=== PATIENT | female | born 1950 | race Native Hawaiian/Other Pacific Islander ===

== ENCOUNTER 2017-06-25 09:57 | Outpatient (CLI) | payer BC | END 2017-06-25 19:31 | disposition home or self-care (01) | LOC: MAMMO 09:57 | DX: Z12.31 Encounter for screening mammogram for malignant neoplasm of breast (principal) | CPT/HCPCS: G0202-TC ==

== ENCOUNTER 2018-07-30 10:31 | Outpatient (CLI) | payer OTHER | END 2018-07-30 21:33 | disposition home or self-care (01) | LOC: RAD 10:31 | DX: S20.219A Contusion of unspecified front wall of thorax, initial encounter (principal); W19.XXXA Unspecified fall, initial encounter ==

== ENCOUNTER 2018-08-05 09:08 | Outpatient (CLI) | payer OTHER | END 2018-08-05 22:26 | disposition home or self-care (01) | LOC: MAMMO 09:08 | DX: Z12.31 Encounter for screening mammogram for malignant neoplasm of breast (principal) ==

== ENCOUNTER 2019-01-19 13:36 | Emergency (ER) | payer OTHER ==
[~2019-01-19] VITALS: Ht 157.5 cm; Wt 88.5 kg
[2019-01-19 13:50] VITALS: BP 173/94; TEMP 98
== END 2019-01-19 15:35 | disposition home or self-care (01) ==
LOC: ED 13:36
DX: M79.601 Pain in right arm (principal); W18.2XXA Fall in (into) shower or empty bathtub, initial encounter
CPT/HCPCS: 99281

== ENCOUNTER 2020-09-12 15:00 | Outpatient (CLI) | payer OTHER | END 2020-09-12 20:21 | disposition home or self-care (01) | LOC: MAMMO 15:00 | DX: Z12.31 Encounter for screening mammogram for malignant neoplasm of breast (principal) ==

== ENCOUNTER 2022-02-12 14:45 | Outpatient (CLI) | payer OTHER | END 2022-02-12 19:03 | disposition home or self-care (01) | LOC: RAD 14:45 | PROVIDERS: ATTEND Internal Medicine | DX: Z13.820 Encounter for screening for osteoporosis (principal); N95.8 Other specified menopausal and perimenopausal disorders ==

== ENCOUNTER 2023-03-13 14:34 | Outpatient (CLI) | payer OTHER | END 2023-03-13 18:59 | disposition home or self-care (01) | LOC: MAMMO 14:34 | PROVIDERS: ATTEND Internal Medicine | DX: Z12.31 Encounter for screening mammogram for malignant neoplasm of breast (principal) ==

== ENCOUNTER 2023-05-28 15:21 | Outpatient (CLI) | payer OTHER | END 2023-05-28 19:29 | disposition home or self-care (01) | LOC: US 15:21 | PROVIDERS: ATTEND Internal Medicine | DX: R42 Dizziness and giddiness (principal); R53.83 Other fatigue; I77.89 Other specified disorders of arteries and arterioles ==

== ENCOUNTER 2023-08-20 13:38 | Outpatient (CLI) | payer OTHER ==
[~2023-08-20] VITALS: Ht 165.1 cm; Wt 89.4 kg
== END 2023-08-20 20:19 | disposition home or self-care (01) ==
LOC: INF 13:38
PROVIDERS: ATTEND Internal Medicine Endocrinology, Diabetes & Metabolism
DX: N39.0 Urinary tract infection, site not specified (principal); B96.29 Other Escherichia coli [E. coli] as the cause of diseases classified elsewhere; Z16.12 Extended spectrum beta lactamase (ESBL) resistance
CPT/HCPCS: 96365; J1335

== ENCOUNTER 2023-08-21 14:35 | Outpatient (CLI) | payer OTHER ==
[~2023-08-21] VITALS: Ht 165.1 cm; Wt 89.4 kg
[2023-08-21 14:45] VITALS: BP 147/80; TEMP 98.3
[2023-08-21 15:35] VITALS: BP 142/76; TEMP 98.2
== END 2023-08-21 19:30 | disposition home or self-care (01) ==
LOC: INF 14:35
PROVIDERS: ATTEND Internal Medicine
DX: N39.0 Urinary tract infection, site not specified (principal); B96.29 Other Escherichia coli [E. coli] as the cause of diseases classified elsewhere; Z16.12 Extended spectrum beta lactamase (ESBL) resistance
CPT/HCPCS: 96365; J1335

== ENCOUNTER 2023-08-22 12:42 | Outpatient (CLI) | payer OTHER ==
[~2023-08-22] VITALS: Ht 165.1 cm; Wt 89.4 kg
== END 2023-08-22 19:15 | disposition home or self-care (01) ==
LOC: INF 12:42
PROVIDERS: ATTEND Internal Medicine
DX: N39.0 Urinary tract infection, site not specified (principal); B96.29 Other Escherichia coli [E. coli] as the cause of diseases classified elsewhere; Z16.12 Extended spectrum beta lactamase (ESBL) resistance
CPT/HCPCS: 96365; J1335

== ENCOUNTER 2023-08-23 12:49 | Outpatient (CLI) | payer OTHER ==
[~2023-08-23] VITALS: Ht 165.1 cm; Wt 89.4 kg
[2023-08-23 13:45] VITALS: BP 125/71; TEMP 97.7
[2023-08-23 14:10] VITALS: BP 111/89; TEMP 97.8
== END 2023-08-23 19:03 | disposition home or self-care (01) ==
LOC: INF 12:49
PROVIDERS: ATTEND Internal Medicine
DX: N39.0 Urinary tract infection, site not specified (principal); B96.29 Other Escherichia coli [E. coli] as the cause of diseases classified elsewhere; Z16.12 Extended spectrum beta lactamase (ESBL) resistance
CPT/HCPCS: 96365; J1335

== ENCOUNTER 2023-08-24 12:25 | Outpatient (CLI) | payer OTHER ==
[2023-08-24 12:28] VITALS: BP 106/69; TEMP 97.8
== END 2023-08-24 18:52 | disposition home or self-care (01) ==
LOC: INF 12:25
PROVIDERS: ATTEND Internal Medicine
DX: N39.0 Urinary tract infection, site not specified (principal); B96.29 Other Escherichia coli [E. coli] as the cause of diseases classified elsewhere; Z16.12 Extended spectrum beta lactamase (ESBL) resistance
CPT/HCPCS: 96365; J1335

== ENCOUNTER 2023-08-25 12:37 | Outpatient (CLI) | payer OTHER ==
[~2023-08-25] VITALS: Ht 165.1 cm; Wt 89.4 kg
[2023-08-25 12:42] VITALS: BP 127/79; TEMP 97.8
[2023-08-25 13:47] VITALS: BP 132/84; TEMP 98.2
== END 2023-08-25 19:16 | disposition home or self-care (01) ==
LOC: INF 12:37
PROVIDERS: ATTEND Internal Medicine
DX: N39.0 Urinary tract infection, site not specified (principal); B96.29 Other Escherichia coli [E. coli] as the cause of diseases classified elsewhere; Z16.12 Extended spectrum beta lactamase (ESBL) resistance
CPT/HCPCS: 96365; J1335

== ENCOUNTER 2023-08-26 12:46 | Outpatient (CLI) | payer OTHER ==
[~2023-08-26] VITALS: Ht 165.1 cm; Wt 75.7 kg
== END 2023-08-26 23:00 | disposition home or self-care (01) ==
LOC: INF 12:46
PROVIDERS: ATTEND Internal Medicine
DX: N39.0 Urinary tract infection, site not specified (principal); B96.29 Other Escherichia coli [E. coli] as the cause of diseases classified elsewhere; Z16.12 Extended spectrum beta lactamase (ESBL) resistance
CPT/HCPCS: 96365; J1335

== ENCOUNTER 2023-08-27 12:52 | Outpatient (CLI) | payer OTHER ==
[~2023-08-27] VITALS: Ht 165.1 cm; Wt 89.4 kg
== END 2023-08-27 18:56 | disposition home or self-care (01) ==
LOC: INF 12:52
PROVIDERS: ATTEND Internal Medicine
DX: N39.0 Urinary tract infection, site not specified (principal); B96.29 Other Escherichia coli [E. coli] as the cause of diseases classified elsewhere; Z16.12 Extended spectrum beta lactamase (ESBL) resistance
CPT/HCPCS: 96365; J1335

== ENCOUNTER 2023-08-28 12:23 | Outpatient (CLI) | payer OTHER ==
[~2023-08-28] VITALS: Ht 165.1 cm; Wt 89.4 kg
== END 2023-08-28 19:29 | disposition home or self-care (01) ==
LOC: INF 12:23
PROVIDERS: ATTEND Internal Medicine Endocrinology, Diabetes & Metabolism
DX: N39.0 Urinary tract infection, site not specified (principal); B96.29 Other Escherichia coli [E. coli] as the cause of diseases classified elsewhere; Z16.12 Extended spectrum beta lactamase (ESBL) resistance
CPT/HCPCS: 96365; J1335

== ENCOUNTER 2023-08-29 12:41 | Outpatient (CLI) | payer OTHER ==
[~2023-08-29] VITALS: Ht 165.1 cm; Wt 89.4 kg
== END 2023-08-29 20:00 | disposition home or self-care (01) ==
LOC: INF 12:41
PROVIDERS: ATTEND Internal Medicine Endocrinology, Diabetes & Metabolism
DX: N39.0 Urinary tract infection, site not specified (principal); B96.29 Other Escherichia coli [E. coli] as the cause of diseases classified elsewhere; Z16.12 Extended spectrum beta lactamase (ESBL) resistance
CPT/HCPCS: 96365; J1335